=== PATIENT | female | born 1940 | race Caucasian/White ===

== ENCOUNTER 2017-01-25 07:32 | Inpatient (IN) ==
[2017-01-25] MEDS ORDERED: ONDANSETRON 4 MG/2 ML VIAL IV STA (08:55)
[2017-01-25] MEDS ORDERED: MORPHINE 2 MG/1 ML SYRINGE IV STA (08:55)
[2017-01-25] MEDS ORDERED: ONDANSETRON 4 MG/2 ML VIAL ONE ×2 (08:59→15:14)
[2017-01-25] MEDS ORDERED: MORPHINE 2 MG/1 ML SYRINGE ONE (08:59)
[2017-01-25 09:10] LABS: Basophils % 0.2 % (0.0-0.8); Eosinophils # 0.1 10*3/uL (0.0-0.87); Eosinophils % 0.9 % (0.00-10.9); Hematocrit 41.1 VOL% (35.7-47.0); Immature Granulocytes % 0.4 %; Immature Granulocytes Absolute 0.05 #; Lymphocytes # 1.4 10*3/uL (1.4-4.0); Lymphocytes % 11.3 % (21.3-54.2); Mean Corpuscular HGB Conc 34.1 GM/DL (32-36); Mean Corpuscular Hemoglobin 30 PG (27-34); Mean Corpuscular Volume 88.6 FL (87-102); Mean Platelet Volume 10.3 FL (9.6-12.0); Monocytes % 7.9 % (1.7-12.7); Neutrophils # 10.1 10*3/uL (1.4-7.4); Neutrophils % 79.3 % (38.7-73.9); Platelet Count 199 T/CUMM (130-400); Red Blood Count 4.64 MC/CUMM (3.8-5.5); Red Cell Distribution Width 13.1 % (9.3-17.3); White Blood Count 12.7 T/CUMM (4-12)
[2017-01-25 09:21] LABS: PT Patient Result 10.9 SECS; Partial Thromboplastin Time 24.7 SECS (0-40)
[2017-01-25 09:22] LABS: Apearance,Urine CLEAR (Clear); Bacteria,Urine Occasional /HPF (Few); Bilirubin,Urine Negative (Negative); Blood, Urine Negative (Negative); Glucose,Urine (UA) 50 mg/dL (Negative); Ketones,Urine Negative (Negative); Mucus,Urine Occasional /LPF (Occasional); Nitrite,Urine Negative (Negative); Protein,Urine Negative; RBC,Urine <1 /HPF (0-4); Squamous Epithelial Cell,Urine Occasional /HPF (0-10); Urine Color Yellow (Yellow); Urine Specific Gravity 1.011 (1.001-1.035); Urine Urobilinogen < 2.0 EU/DL (0.2-1.0); WBC,Urine 1 /HPF (0-6)
[2017-01-25 09:39] LABS: Albumin 3.7 G/DL (3.4-5.0); Bilirubin,Total 0.5 MG/DL (0.2-1.0); Osmolality,Calculated 281.8 MOS/KG (273-304); Potassium 3.4 MMOL/L (3.5-5.1); Total Protein 7.3 G/DL (6.4-8.3)
[2017-01-25] MEDS ORDERED: ACETAMINOPHEN 325 MG TABLET PO PRN (10:29)
[2017-01-25] MEDS ORDERED: DEXTROSE 5% NACL 0.45% 1,000 ML IV SCH (10:29)
[2017-01-25] MEDS ORDERED: DOCUSATE SODIUM 100 MG CAPSULE PO PRN (10:29)
[2017-01-25] MEDS ORDERED: DEXTROSE 50% 25 GM/50 ML VIAL IV PRN ×2 (10:29)
[2017-01-25] MEDS ORDERED: ONDANSETRON 4 MG/2 ML VIAL IV PRN (10:29)
[2017-01-25] MEDS ORDERED: GLUCAGON 1 MG VIAL IM PRN ×2 (10:29)
[2017-01-25] MEDS ORDERED: ceFAZolin 1,000 MG in SYRINGE 1 EACH IV ONE (10:29)
[2017-01-25] MEDS ORDERED: SODIUM CHLORIDE 0.45% 1,000 ML IV SCH (10:29)
[2017-01-25] MEDS ORDERED: MORPHINE 2 MG/1 ML SYRINGE IV PRN (10:29)
[2017-01-25] MEDS: INSULIN REGULAR 100 UNIT/ML SUBCUT SCH ×3 (13:26→21:15)
[2017-01-25 13:32] LABS: Calcium 8.9 MG/DL (8.5-10.1); Magnesium 2.1 MG/DL (1.8-2.4); Osmolality,Calculated 280.5 MOS/KG (273-304); Potassium 3.5 MMOL/L (3.5-5.1)
[2017-01-25] MEDS ORDERED: BACITRACIN OINT 0.9 GM PACK TOP ONE (14:20)
[2017-01-25] MEDS ORDERED: TRANEXAMIC ACID 1,000 MG/10 ML VIAL IV ONE (14:20)
[2017-01-25] MEDS ORDERED: fentaNYL 100 MCG/2 ML VIAL ONE (15:14)
[2017-01-25] MEDS ORDERED: SEVOFLURANE 1 UNIT/15 MINUTE INH ONE (15:14)
[2017-01-25] MEDS ORDERED: MIDAZOLAM 2 MG/2 ML VIAL ONE (15:14)
[2017-01-25] MEDS ORDERED: PROPOFOL 200 MG/20 ML VIAL IV ONE (15:14)
[2017-01-25] MEDS ORDERED: ROCURONIUM 100 MG/10 ML VIAL IV ONE (15:15)
[2017-01-25] MEDS ORDERED: LACTATED RINGERS 1,000 ML IV ONE (15:15)
[2017-01-25] MEDS ORDERED: NEOSTIGMINE 10 MG/10 ML VIAL ONE (15:15)
[2017-01-25] MEDS ORDERED: GLYCOPYRROLATE 0.4 MG/2 ML VIAL ONE (15:15)
[2017-01-25] MEDS: PANTOPRAZOLE 40 MG TABLET PO SCH (16:40)
[2017-01-25] MEDS: KETOROLAC 15 MG/1 ML VIAL IV SCH ×2 (16:40→21:09)
[2017-01-25] MEDS: ACETAMINOPHEN 500 MG TABLET PO SCH (19:01)
[2017-01-25] MEDS: PRAVASTATIN 20 MG TABLET PO SCH (21:08)
[2017-01-25] MEDS: CETIRIZINE 10 MG TABLET PO SCH (21:08)
[2017-01-25] MEDS: GLIMEPIRIDE 4 MG TABLET PO SCH (21:08)
[2017-01-25] MEDS: LACTATED RINGERS 1,000 ML IV SCH (22:42)
[2017-01-26] MEDS: ACETAMINOPHEN 500 MG TABLET PO SCH ×3 (01:50→11:42)
[2017-01-26] MEDS: LACTATED RINGERS 1,000 ML IV SCH (01:58)
[2017-01-26] MEDS: KETOROLAC 15 MG/1 ML VIAL IV SCH ×2 (04:54→08:24)
[2017-01-26 05:13] LABS: Basophils % 0.4 % (0.0-0.8); Eosinophils # 0.4 10*3/uL (0.0-0.87); Eosinophils % 5.3 % (0.00-10.9); Hematocrit 33.3 VOL% (35.7-47.0); Hemoglobin 11.3 GM/DL (12.0-16.0); Immature Granulocytes % 0.4 %; Immature Granulocytes Absolute 0.03 #; Lymphocytes # 1.7 10*3/uL (1.4-4.0); Lymphocytes % 20.2 % (21.3-54.2); Mean Corpuscular HGB Conc 33.9 GM/DL (32-36); Mean Corpuscular Hemoglobin 30 PG (27-34); Mean Platelet Volume 10.6 FL (9.6-12.0); Monocytes # 0.9 10*3/uL (0.11-0.8); Monocytes % 10.5 % (1.7-12.7); Neutrophils # 5.2 10*3/uL (1.4-7.4); Neutrophils % 63.2 % (38.7-73.9); Platelet Count 155 T/CUMM (130-400); Red Blood Count 3.74 MC/CUMM (3.8-5.5); Red Cell Distribution Width 13.2 % (9.3-17.3); White Blood Count 8.3 T/CUMM (4-12)
[2017-01-26 05:42] LABS: Albumin 2.7 G/DL (3.4-5.0); Osmolality,Calculated 275.7 MOS/KG (273-304); Potassium 3.3 MMOL/L (3.5-5.1); Total Protein 5.1 G/DL (6.4-8.3)
[2017-01-26] MEDS: INSULIN REGULAR 100 UNIT/ML SUBCUT SCH ×4 (07:35→20:51)
[2017-01-26] MEDS: FONDAPARINUX 2.5 MG/0.5 ML SYRINGE SUBCUT SCH (08:23)
[2017-01-26] MEDS: GLIMEPIRIDE 4 MG TABLET PO SCH ×2 (08:24→20:51)
[2017-01-26] MEDS: LISINOPRIL/HCTZ 20-25 MG TABLET PO SCH (08:24)
[2017-01-26] MEDS: PANTOPRAZOLE 40 MG TABLET PO SCH (08:26)
[2017-01-26] MEDS: PRAVASTATIN 20 MG TABLET PO SCH (20:51)
[2017-01-26] MEDS: CETIRIZINE 10 MG TABLET PO SCH (20:51)
[2017-01-27 09:56] LABS: Calcium 7.9 MG/DL (8.5-10.1); Osmolality,Calculated 278.5 MOS/KG (273-304); Potassium 3.4 MMOL/L (3.5-5.1)
[2017-01-27 09:59] LABS: Basophils % 0.2 % (0.0-0.8); Eosinophils # 0.5 10*3/uL (0.0-0.87); Eosinophils % 5.7 % (0.00-10.9); Hematocrit 33.7 VOL% (35.7-47.0); Hemoglobin 11.5 GM/DL (12.0-16.0); Immature Granulocytes % 1.1 %; Lymphocytes # 1.7 10*3/uL (1.4-4.0); Lymphocytes % 17.9 % (21.3-54.2); Mean Corpuscular HGB Conc 34.1 GM/DL (32-36); Mean Corpuscular Hemoglobin 31 PG (27-34); Mean Corpuscular Volume 89.4 FL (87-102); Mean Platelet Volume 11.2 FL (9.6-12.0); Monocytes # 0.9 10*3/uL (0.11-0.8); Monocytes % 9.1 % (1.7-12.7); Neutrophils # 6.2 10*3/uL (1.4-7.4); Platelet Count 149 T/CUMM (130-400); Red Blood Count 3.77 MC/CUMM (3.8-5.5); Red Cell Distribution Width 13.1 % (9.3-17.3); White Blood Count 9.4 T/CUMM (4-12)
[2017-01-27] MEDS: FONDAPARINUX 2.5 MG/0.5 ML SYRINGE SUBCUT SCH (10:01)
[2017-01-27] MEDS: INSULIN REGULAR 100 UNIT/ML SUBCUT SCH ×4 (10:01→20:51)
[2017-01-27] MEDS: LISINOPRIL/HCTZ 20-25 MG TABLET PO SCH (10:02)
[2017-01-27] MEDS: PANTOPRAZOLE 40 MG TABLET PO SCH (10:02)
[2017-01-27] MEDS: GLIMEPIRIDE 4 MG TABLET PO SCH ×2 (10:02→20:51)
[2017-01-27] MEDS ORDERED: POTASSIUM CHLORIDE 20 MEQ TABLET PO PRN (16:31)
[2017-01-27] MEDS: PRAVASTATIN 20 MG TABLET PO SCH (20:51)
[2017-01-27] MEDS: CETIRIZINE 10 MG TABLET PO SCH (20:51)
[2017-01-27] MEDS: ZALEPLON 5 MG CAPSULE PO PRN (22:49)
[2017-01-28] MEDS: INSULIN REGULAR 100 UNIT/ML SUBCUT SCH ×4 (08:11→20:48)
[2017-01-28] MEDS: FONDAPARINUX 2.5 MG/0.5 ML SYRINGE SUBCUT SCH (09:09)
[2017-01-28] MEDS: LISINOPRIL/HCTZ 20-25 MG TABLET PO SCH (09:10)
[2017-01-28] MEDS: GLIMEPIRIDE 4 MG TABLET PO SCH ×2 (09:10→20:43)
[2017-01-28] MEDS: PANTOPRAZOLE 40 MG TABLET PO SCH (09:11)
[2017-01-28] MEDS: MAGNESIUM HYDROXIDE SUSP 30 ML UDCUP PO PRN ×2 (12:52→20:44)
[2017-01-28] MEDS: CETIRIZINE 10 MG TABLET PO SCH (20:43)
[2017-01-28] MEDS: ZALEPLON 5 MG CAPSULE PO PRN (20:43)
[2017-01-28] MEDS: PRAVASTATIN 20 MG TABLET PO SCH (20:44)
[2017-01-29] MEDS: MAGNESIUM HYDROXIDE SUSP 30 ML UDCUP PO PRN (06:03)
[2017-01-29] MEDS ORDERED: BISACODYL 10 MG SUPP RECTAL ONE (07:08)
[2017-01-29] MEDS: INSULIN REGULAR 100 UNIT/ML SUBCUT SCH ×2 (08:05→12:07)
[2017-01-29] MEDS: GLIMEPIRIDE 4 MG TABLET PO SCH (09:20)
[2017-01-29] MEDS: FONDAPARINUX 2.5 MG/0.5 ML SYRINGE SUBCUT SCH (09:20)
[2017-01-29] MEDS: PANTOPRAZOLE 40 MG TABLET PO SCH (09:20)
[2017-01-29] MEDS: LISINOPRIL/HCTZ 20-25 MG TABLET PO SCH (09:20)
[2017-01-29 11:30] VITALS: BP 131/62
== END 2017-01-29 14:40 | disposition home or self-care (01) | DRG 482 ==
LOC: N.ED 07:32 → SUATTDRO 08:53 → N.EDINP 08:53 → N.3E 10:27
PROVIDERS: ADMIT Internal Medicine; ATTEND Internal Medicine

== ENCOUNTER 2019-04-19 05:32 | Inpatient (IN) ==
[2019-04-19] MEDS ORDERED: VANCOMYCIN INJ 1,000 MG in SODIUM CHLORIDE 0.9% 250 ML IV ONE (06:00)
[2019-04-19] MEDS ORDERED: ceFAZolin 1,000 MG in SYRINGE 1 EACH IV ONE ×2 (06:00→21:00)
[2019-04-19] MEDS ORDERED: CLINDAMYCIN INJ 50 ML IV ONE (06:02)
[2019-04-19] MEDS ORDERED: VANCOMYCIN 1,000 MG VIAL ONE (06:02)
[2019-04-19] MEDS ORDERED: LIDOCAINE 1% 5 ML VIAL ONE (06:32)
[2019-04-19] MEDS ORDERED: ROPIVACAINE 0.5% 30 ML VIAL ONE (06:32)
[2019-04-19] MEDS ORDERED: DEXAMETHASONE 4 MG/1 ML VIAL ONE (06:32)
[2019-04-19 06:36] LABS: Hematocrit 41.9 VOL% (35.7-47.0); Hemoglobin 13.6 GM/DL (12.0-16.0)
[2019-04-19] MEDS ORDERED: LACTATED RINGERS 1,000 ML IV SCH (07:00)
[2019-04-19] MEDS ORDERED: GLUCAGON 1 MG VIAL IM PRN (07:31)
[2019-04-19] MEDS ORDERED: DEXTROSE 10% 250 ML BAG IV PRN (07:31)
[2019-04-19] MEDS ORDERED: diphenhydrAMINE CAP 25 MG CAPSULE PO PRN (07:32)
[2019-04-19] MEDS ORDERED: oxyCODONE IR 5 MG TABLET PO PRN ×2 (07:32)
[2019-04-19] MEDS ORDERED: MAGNESIUM HYDROXIDE SUSP 30 ML UDCUP PO PRN (07:32)
[2019-04-19] MEDS ORDERED: MORPHINE 4 MG/1 ML VIAL IV PRN ×2 (07:32)
[2019-04-19] MEDS ORDERED: BACITRACIN OINT 0.9 GM PACK TOP ONE (08:22)
[2019-04-19] MEDS ORDERED: fentaNYL 100 MCG/2 ML VIAL ONE (09:14)
[2019-04-19] MEDS ORDERED: TRANEXAMIC ACID 1,000 MG/10 ML VIAL ONE (09:14)
[2019-04-19] MEDS ORDERED: SODIUM CHLORIDE 0.9% 250 ML IV ONE (09:14)
[2019-04-19] MEDS ORDERED: propofoL 200 MG/20 ML VIAL IV ONE (09:14)
[2019-04-19] MEDS ORDERED: LIDOCAINE 2% 5 ML VIAL ONE (09:14)
[2019-04-19] MEDS ORDERED: MIDAZOLAM 2 MG/2 ML VIAL ONE (09:14)
[2019-04-19] MEDS ORDERED: BUPIVACAINE SPINAL 0.75% 2 ML AMP SPINAL ONE (09:15)
[2019-04-19 09:17] LABS: Apearance,Urine CLEAR (Clear); Bilirubin,Urine Negative (Negative); Blood, Urine Negative (Negative); Glucose,Urine (UA) 50 mg/dL (Negative); Ketones,Urine Negative (Negative); Mucus,Urine Occasional /LPF (Occasional); Nitrite,Urine Negative (Negative); Protein,Urine Negative; RBC,Urine 2 /HPF (0-4); Squamous Epithelial Cell,Urine Occasional /HPF (0-10); Urine Color Yellow (Yellow); Urine Specific Gravity 1.017 (1.001-1.035); Urine Urobilinogen < 2.0 EU/DL (0.2-1.0)
[2019-04-19] MEDS: GLIMEPIRIDE 4 MG TABLET PO SCH ×2 (09:55→21:30)
[2019-04-19] MEDS: RANITIDINE 150 MG TABLET PO SCH ×2 (09:55→21:30)
[2019-04-19] MEDS: DOCUSATE SODIUM 100 MG CAPSULE PO SCH ×2 (09:55→21:30)
[2019-04-19] MEDS: KETOROLAC 15 MG/1 ML VIAL IV SCH ×3 (10:18→21:29)
[2019-04-19] MEDS: ceFAZolin 1,000 MG in SYRINGE 1 EACH IV SCH ×2 (12:34→21:31)
[2019-04-19] MEDS: INSULIN LISPRO 100 UNIT/ML SUBCUT SCH ×3 (12:36→21:18)
[2019-04-19] MEDS: LACTATED RINGERS 1,000 ML IV SCH ×4 (12:36→23:18)
[2019-04-19] MEDS: SIMVASTATIN 10 MG TABLET PO SCH (21:30)
[2019-04-19] MEDS: CETIRIZINE 10 MG TABLET PO SCH (21:30)
[2019-04-19] MEDS: TEMAZEPAM 15 MG CAPSULE PO SCH (21:30)
[2019-04-20] MEDS: KETOROLAC 15 MG/1 ML VIAL IV SCH (02:00)
[2019-04-20] MEDS: FONDAPARINUX 2.5 MG/0.5 ML SYRINGE SUBCUT SCH (02:00)
[2019-04-20] MEDS: LACTATED RINGERS 1,000 ML IV SCH (05:50)
[2019-04-20 06:37] LABS: Calcium 8.2 MG/DL (8.5-10.1)
[2019-04-20 06:41] LABS: Basophils % 0.3 % (0.0-0.8); Eosinophils % 0.2 % (0.00-10.9); Hematocrit 30.2 VOL% (35.7-47.0); Immature Granulocytes % 0.4 %; Immature Granulocytes Absolute 0.04 #; Lymphocytes # 1.7 10*3/uL (1.4-4.0); Lymphocytes % 16.9 % (21.3-54.2); Mean Corpuscular HGB Conc 33.1 GM/DL (32-36); Mean Corpuscular Volume 92.9 FL (87-102); Mean Platelet Volume 9.7 FL (9.6-12.0); Neutrophils % 71.2 % (38.7-73.9); Platelet Count 188 T/CUMM (130-400); Red Blood Count 3.25 MC/CUMM (3.8-5.5); Red Cell Distribution Width 12.3 % (9.3-17.3); White Blood Count 10.1 T/CUMM (4-12)
[2019-04-20] MEDS: INSULIN LISPRO 100 UNIT/ML SUBCUT SCH ×4 (07:30→22:01)
[2019-04-20] MEDS: GLIMEPIRIDE 4 MG TABLET PO SCH ×2 (10:34→21:56)
[2019-04-20] MEDS: RANITIDINE 150 MG TABLET PO SCH ×2 (10:35→21:56)
[2019-04-20] MEDS: LISINOPRIL/HCTZ 20-25 MG TABLET PO SCH (10:35)
[2019-04-20] MEDS: DOCUSATE SODIUM 100 MG CAPSULE PO SCH ×2 (10:35→21:56)
[2019-04-20] MEDS: POTASSIUM CHLORIDE 20 MEQ TABLET PO SCH (10:35)
[2019-04-20] MEDS: SIMVASTATIN 10 MG TABLET PO SCH (21:56)
[2019-04-20] MEDS: TEMAZEPAM 15 MG CAPSULE PO SCH (21:56)
[2019-04-20] MEDS: CETIRIZINE 10 MG TABLET PO SCH (21:56)
[2019-04-21] MEDS: FONDAPARINUX 2.5 MG/0.5 ML SYRINGE SUBCUT SCH (01:33)
[2019-04-21 05:46] LABS: Basophils % 0.3 % (0.0-0.8); Eosinophils # 0.4 10*3/uL (0.0-0.87); Eosinophils % 4.3 % (0.00-10.9); Hematocrit 30.8 VOL% (35.7-47.0); Hemoglobin 10.1 GM/DL (12.0-16.0); Immature Granulocytes % 0.5 %; Immature Granulocytes Absolute 0.05 #; Lymphocytes # 2.4 10*3/uL (1.4-4.0); Lymphocytes % 24.1 % (21.3-54.2); Mean Corpuscular HGB Conc 32.8 GM/DL (32-36); Mean Corpuscular Volume 93.3 FL (87-102); Mean Platelet Volume 9.7 FL (9.6-12.0); Monocytes % 11.2 % (1.7-12.7); Neutrophils % 59.6 % (38.7-73.9); Platelet Count 181 T/CUMM (130-400); Red Cell Distribution Width 12.6 % (9.3-17.3); White Blood Count 10.1 T/CUMM (4-12)
[2019-04-21 06:41] LABS: Eosinophils 4 % (0-10); Hypochromasia Slight; Lymphocytes 30 % (20-55); Platelet Estimate Adequate; Segmented Neutrophils 57 % (50-85); Total Cells Counted 100
[2019-04-21] MEDS: INSULIN LISPRO 100 UNIT/ML SUBCUT SCH ×3 (07:48→16:45)
[2019-04-21] MEDS: GLIMEPIRIDE 4 MG TABLET PO SCH (09:26)
[2019-04-21] MEDS: POTASSIUM CHLORIDE 20 MEQ TABLET PO SCH (09:27)
[2019-04-21] MEDS: LISINOPRIL/HCTZ 20-25 MG TABLET PO SCH (09:27)
[2019-04-21] MEDS: DOCUSATE SODIUM 100 MG CAPSULE PO SCH (09:28)
[2019-04-21] MEDS: RANITIDINE 150 MG TABLET PO SCH (09:28)
[2019-04-21 11:55] VITALS: BP 134/60
== END 2019-04-21 16:45 | disposition home health service (06) | DRG 468 ==
LOC: N.SDSINP 05:32 → N.3E 08:05
PROVIDERS: ADMIT Orthopaedic Surgery; ATTEND Orthopaedic Surgery